=== PATIENT | female | born 1970 | race Caucasian/White ===

== ENCOUNTER 2018-08-26 18:46 | Outpatient (REF) | payer BC, SELFPAY ==
--- NOTE | 2018-08-26 15:00 | PAPFT_PTH ---
PATIENT: Randa Lucio LOC: [facility] U#:[id number] AGE/SX: 47/F ROOM: RE08/26/[address]: Braxton Aldridge DO : 1970 BED: DIS: 08/26/2018 SPEC #: [id number] RECD: 08/27/18 13:13 STATUS: ISRRAEL REBlair #: [id number] MIHAELA: 08/26/18 15:[address]: Braxton Aldridge DEPT: [facility] Cytology RECD BY: Delia Lepe Tissues: 1 - CX/ENDOCX FOR PAP SMEARS Procedures: PAP THIN PREP/UVM Screening HPV DNA PROBE Comments: [id number]
== END 2018-08-26 19:06 ==
LOC: LBN 18:46
PROVIDERS: PCP Emergency Medicine; Visit Provider Emergency Medicine
DX: Z12.4 Encounter for screening for malignant neoplasm of cervix (principal); Z11.51 Encounter for screening for human papillomavirus (HPV)
CPT/HCPCS: 88142; 87624

== ENCOUNTER 2018-08-31 02:05 | Outpatient (CLI) | payer BC, SELFPAY ==
[2018-08-31 11:58] LABS: Ferritin 36 ng/mL (8-388)
== END 2018-08-31 02:25 ==
PROVIDERS: PCP Emergency Medicine; Visit Provider Emergency Medicine
DX: E61.1 Iron deficiency (principal)
CPT/HCPCS: 36415; 82728

== ENCOUNTER 2019-12-13 02:39 | Outpatient (CLI) | payer BC, SELFPAY ==
[2019-12-13 08:00] LABS: HCT 38.4 % (36.0-46.0); HGB 12.8 g/dL (12.0-15.5); Mean Corp. HGB Concentration 33.3 g/dL (32.0-36.0); Mean Corpuscular Hemoglobin 32.7 pg (27.0-33.0); Mean Platelet Volume 9.5 fL (8.0-11.0); Platelet Count 293 x1000/uL (130-400); RBC 3.92 m/cumm (4.00-5.20); RBC Distribution Width 12.9 % (11.7-14.6); White Blood Cell Count 4.66 k/cumm (4.4-10.8)
[2019-12-13 09:13] LABS: Calculated LDL 95 mg/dL (<100); Cholesterol 196 mg/dL (<200); Ferritin 17 ng/mL (8-252); HDL Cholesterol 91 mg/dL (40-60); Triglyceride 51 mg/dL (<150)
[2019-12-13 10:51] LABS: Vitamin B12 436 pg/mL (193-986)
[2019-12-13 10:53] LABS: Folate > 20.0 ng/mL (8.6-20.0)
== END 2019-12-13 02:59 ==
PROVIDERS: PCP Emergency Medicine; Visit Provider Emergency Medicine
DX: D64.9 Anemia, unspecified (principal); Z13.220 Encounter for screening for lipoid disorders
CPT/HCPCS: 36415; 80061; 85027; 82607; 82728; 82746

== ENCOUNTER 2020-06-29 16:49 | Outpatient (REF) | payer BC, SELFPAY ==
--- NOTE | 2020-06-29 16:00 | ENDOMET_PTH ---
PATIENT: Randa Lucio LOC: [facility] U#:[id number] AGE/SX: 49/F ROOM: RE06/29/[address]: Pallavi Burris : 1970 BED: DIS: 06/29/2020 SPEC #: [id number] RECD: 06/29/20 17:04 STATUS: ISRRAEL REBlair #: [id number] MIHAELA: 06/29/20 16:[address]: Pallavi Burris DEPT: Surgical Specimen RECD BY: Dinorah Reno ENTERED: 06/29/20 17:05 SP TYPE: Endomet OTHR DR: Braxton Aldridge DO Tissues: 1 - ENDOMETRIUM BX/CURRETTE Procedures: GROSS AND MICRO LEVEL 4 Comments: [id number]
== END 2020-06-29 17:09 ==
LOC: LBN 16:49
PROVIDERS: PCP Emergency Medicine; Visit Provider Obstetrics & Gynecology Gynecology
DX: N92.0 Excessive and frequent menstruation with regular cycle (principal)
CPT/HCPCS: 88305

== ENCOUNTER 2021-10-07 10:08 | Day surgery (SDC) | payer BC, SELFPAY ==
--- NOTE | 2021-10-07 06:35 | COLE_ITS ---
Colonoscopy Report Date of procedure: 10/07/21 Pre-op diagnosis general: Colon Cancer Screening Post-op diagnosis procedure note: other (colorectal polyps) Procedure: Colonoscopy with polypectomy Surgeon: Sara May Anesthesia Type: General:No Airway Estimated blood loss (mL): 5 Pathology: other (ascending, transverse and rectal polyps) Complications: None Disposition: same day Indications: The patient is here for Colonoscopy pre-op. She has no family history of colon cancer. She has not had any bowel habit changes. -Discussed colonoscopy bowel prep as well as the procedure. Discussed possible complications of the procedure to include bleeding, pain, perforation, missed small lesion/polyp, sore throat, aspiration and adverse reaction to the medications. Questions were answered to patient?s satisfaction. No guarantees were implied or given.? Prep: Miralax/Dulcolax Procedure Start Time: 10:53 Procedure End Time: 11:22 Retraction Time: 17 minutes Findings: 5 small sessile polyps Procedure Description: After informed consent was obtained the patient was taken to the procedure room and placed in a left decubitous position. Monitors were applied and a time out was done. The patients name, date of , procedure, allergies to medications and metal in their body was reviewed. The patient was then sedated. Once sedated and comfortable a rectal exam was done. External exam was normal. Internal exam revealed a normal sphincter tone and no palpable masses. The scope was then introduced and retro-flexed. No internal hemorrhoids, polyps or masses were identified on retro-flexion. The scope was then advanced to the cecum with some difficulty. The ileocecal vlave and appendiceal orifice were identified. The prep was good. The scope was then slowly retracted over 17 minutes back into the rectum. Polyps were removed with a hot snare in the asce nding colon x1 and rectum x1 and with cold forceps in the ascending colon, transverse colon and rectum. There was no diverticulosis noted. The scope was removed and the patient was woken up and taken back to Same day surgery in stable condition. The patient tolerated the procedure well and there were no immediate complications. Follow up: The patient should follow up in 3-5 years unless they develop changes in bowel habits or other new gastrointestinal complaints.
--- NOTE | 2021-10-07 06:35 | W.PM.DSUDISC ---
Discharge Plan Disposition Patient Disposition: HOME Condition: Good Discharge Details Reason For Visit: Colonoscopy Attending Provider: Sara May Primary Care Provider: Aline Rider Home Meds and New Rx's Prescriptions: Continued ibuprofen 600 MG tablet 600 mg PO DIRECTED Qty: 90 0RF Rx Instructions: ONE IN A.M. ON DAY OF MENSES ferrous sulfate 325 MG tablet 325 mg PO DAILY 0RF multivitamin [Daily Multiple] 1 EACH tablet 1 ea PO DAILY 0RF sertraline 100 mg tablet 100 mg PO HS 0RF Discontinued polyethylene glycol 3350 17 gram/dose powder 238 g PO ONCE Qty: 238 0RF Rx Instructions: take per colonoscopy instructions bisacodyl [Dulcolax (bisacodyl)] 5 mg tablet,delayed release (DR/EC) 5 mg PO ONCE Qty: 4 0RF Rx Instructions: take per colonoscopy instructions Discharge Instructions Instructions: Colorectal Polyps (DC) Additional Instructions: Findings: 5 polyps Follow up: 3-5 years Please call if you develop: fevers >101.5 Nausea or Vomiting Abdominal pain that is not transient Rectal bleeding that is more then a tbsp A hard abdomen and inability to pass gas DAY SURGERY UNIT POST ENDOSCOPY INSTRUCTIONS Instructions for everyone who is given Anesthesia: For your safety, please do the following for the next 24 Hours: a. Do not drive or operate dangerous equipment b. Do not drink alcohol beverages or use any recreational drugs for the first 24 hours or while taking pain medications. The medications in your body may have a reaction that can be dangerous. c. Do not make any important decisions or sign any important papers 1. Generally there are no restrictions on your activity after a day or so has gone by, but you may feel a bit fatigued for a few days. 2. After you arrive home you may have a light meal and return to a normal diet as you can tolerate it without feeling sick to your stomach. 3. After surgery, you may feel pain or discomfort. This should be only transient, but if it persists please contact your doctor. 4. If there are any questions regarding the findings of your procedure, please feel free to contact your doctor. 6. If you are unable to contact your doctor with a problem, contact the hospital at [phone]. 7. Continue all your regular medications unless directed otherwise. I understand the above instructions and have no questions. Signature of Patient or Responsible Adult Escort Date/Time Name of Responsible Adult Escort Signature of Nurse Date/Time Activity:: Activity as Tolerated Diet:: As Tolerated Discharge Orders Discharge Orders: Discharge Order (Routine); Ordered 10/07/21 Ordered By: Sara May
[2021-10-07 10:27] VITALS: BP 119/86; PULSE 67; RESP 16; TEMP 36.5; O2SAT 100
--- NOTE | 2021-10-07 10:32 | W.ANESPRE ---
General Info Date of Service Date Performed: 10/07/21 Height: 5 ft 9 in Weight: 61.8 kg Body Mass Index (BMI): 20.1 Surgical Procedure: Operation Date: 10/07/21 10:35 Proposed Procedure Side Surgeon andra May MD Meds Allergies and Home Medications Allergies Allergy/AdvReac Type Severity Reaction Status Date / Time amoxicillin Allergy Intermediate HIVES Verified 10/07/21 10:30 latex Allergy Unknown SKIN RASH Verified 10/07/21 10:30 meperidine AdvReac Intermediate Nausea; Verified 10/07/21 10:30 VOMITING Home Medication Medication Instructions Recorded ibuprofen 600 mg tablet 600 mg PO DIRECTED #90 02/01/13 ferrous sulfate 325 mg (65 mg 325 mg PO DAILY 05/05/14 iron) tablet multivitamin (Daily Multiple) 1 ea PO DAILY 07/01/16 bisacodyl 5 mg tablet,delayed 5 mg PO ONCE #4 tab 09/27/21 release (Dulcolax (bisacodyl)) polyethylene glycol 3350 17 238 g PO ONCE #238 g 09/27/21 gram/dose oral powder sertraline 100 mg tablet 100 mg PO HS 10/03/21 Current Visit Medications: Current Medications Generic Name Dose Route Start Last Admin Trade Name Freq PRN Reason Stop Dose Admin Hyoscyamine Sulfate 0.125 mg 10/07/21 06:37 Hyoscyamine 0.125 Mg Sl/Oral/Chew SL DIRECTED PRN Ringer's Solution 1,000 mls @ 80 mls/hr 10/07/21 06:00 IV 11/03/21 23:59 INFUSION [facility] IV Miscellaneous Supplies 1 each 10/07/21 06:00 Iv Access IV 11/03/21 23:59 DIRECTED [facility] Ondansetron HCl 4 mg 10/07/21 06:37 Ondansetron 4 Mg/2 Ml Vial IVP Q4H PRN PRN Nausea / Vomiting Sodium Chloride 0 ml 10/07/21 06:00 Normal Saline Flush 10 Ml Syr IV 11/03/21 23:59 PRN PRN Sodium Chloride 0 ml 10/07/21 06:00 Normal Saline 10 Ml Vial IJ 11/03/21 23:59 DIRECTED PRN Sterile Water 0 ml 10/07/21 06:00 Water,Injection,Sterile 10 Ml Vial IJ 11/03/21 23:59 DIRECTED PRN PFSH Active Problems Active Problems: Problem Status Onset Code Uterine rupture during labor 10/31/15 O71.1 Umbilical hernia 05/05/14 K42.9 Premenopause menorrhagia N92.4 Metrorrhagia N92.1 Family hx-breast malignancy 08/06/12 Z80.3 Anxiety 08/06/12 F41.9 Left carpal tunnel syndrome G56.02 Status post angioplasty of vein Z98.890 IUD (intrauterine device) in place Z97.5 IUD surveillance Z30.431 Medical History Medical History Anemia Due to menstrual brought blood loss Surgical History Surgical History section X 2 [place] teeth extracted Tobacco Smoking/Tobacco Use Status: Never Passive smoking exposure: No Second hand exposure: No Alcohol Alcohol Intake: current Alcohol intake frequency: a few times a week Alcohol type: beer Substance Use Substance use: Never Substance use type: does not use Prental History History 2 Para 2 Hx # Term Pregnancies 2 Multiple births Hx # Pregnancies Ectopic pregnancies AB induced Hx Number of Living Children 2 AB spontaneous Vital Signs and Lab Results Vital Signs Most Recent Vital Signs in EMR: Most Recent Vital Signs Temp Pulse Resp BP Pulse Ox 36.5 C 67 16 119/86 100 10/07/21 10:27 10/07/21 10:27 10/07/21 10:27 10/07/21 10:27 10/07/21 10:27 Lab Results Blood Type / Crossmatch: No Data to Display Complete Blood Count: No Data to Display Complete Metabolic Panel: No Data to Display Liver Function Panel: No Data to Display Coagulation Panel: No Data to Display Cardiac Panel: No Data to Display Arterial Blood Gas: No Data to Display Venous Blood Gas: No Data to Display Pancreas Panel: No Data to Display Thyroid Panel: No Data to Display Infectious Disease: No Data to Display Blood Cultures: No Data to Display Toxicology Panel: No Data to Display Panel: No Data to Display Anesthesia Assessment and Plan Anesthesia History Personal History: No History of Anesthesia Complications Family History: No Family History of Anesthesia Complications Exercise Tolerance Exercise Tolerance: Metabolic Equivalents>4 Pertinent Negatives Pertinent Negatives: No Symptoms of GERD, No Major Cardiovascular Symptoms or Complaints and No Major Pulmonary Symptoms or Complaints Cardiac & Pulmonary Exam Cardiac Exam: Normal S1/S2 Heart Sounds Pulmonary Exam: Clear Bilateral Breath Sounds Implantable Cardiac Device Does patient have a Pacemaker or an ICD?: No Airway Exam Known Difficult Airway: No Mallampati Class: 1 Mouth Opening: Normal (> 3cm) Thyromental Distance: Greater than 3 cm Neck Range of Motion: Full ROM Neck Circumference: Normal Teeth Condition: Normal Dentition ASA Classification ASA Score: ASA 2 Emergency Case?: No NPO Status NPO Status: NPO Clears >2 hours, Solids >8 hours Status Status: Not Per Patient Anesthesia Plan Resuscitation Status: Full Code Anesthesia Technique: General Anesthesia Airway Planned: Natural Airway Monitors Used: Standard Monitors
[2021-10-07 10:44] VITALS: BMI 20.1
[2021-10-07] MEDS: Lactated Ringers 1,000 ML 80 ML IV (10:44)
--- NOTE | 2021-10-07 11:08 | BOWEL_PTH ---
PATIENT: Randa Lucio LOC: [facility] U#:[id number] AGE/SX: 50/F ROOM: RE10/07/[address]: Sara May MD : 1970 BED: DIS: 10/07/2021 SPEC #: [id number] RECD: 10/07/21 12:59 STATUS: ISRRAEL REQ #: [id number] MIHEALA: 10/07/21 11:[address]: Sara May DEPT: Surgical Specimen RECD BY: Dinorah Reno ENTERED: 10/07/21 13:00 SP TYPE: Bowel OTHR DR: Aline Rider Tissues: 1 - BIOPSY BOWEL 2 - BIOPSY BOWEL 3 - BIOPSY BOWEL Procedures: GROSS AND MICRO LEVEL 4 Comments: [id number]
[2021-10-07 11:34] VITALS: BP 105/76; PULSE 60; RESP 16; TEMP 36.1; O2SAT 99
[2021-10-07 12:05] VITALS: BP 104/70; PULSE 58; RESP 16; TEMP 36.2; O2SAT 100
--- NOTE | 2021-10-07 12:26 | W.ANESPOSTOP ---
Postoperative Evaluation Date, Time and Location Date Performed: 10/07/21 Time Performed: 11:56 Patient Location: Day Surgery Unit Vital Signs Most Recent Imported Vital Signs: Most Recent Vital Signs Temp Pulse Resp BP Pulse Ox 36.2 C L 58 L 16 104/70 100 10/07/21 12:05 10/07/21 12:05 10/07/21 12:05 10/07/21 12:05 10/07/21 12:05 Pain Score Most Recent Pain Score: Most Recent Pain Score Pain Level 0 10/07/21 12:05 Assessment Mental Status: Awake (Alert & Oriented to Patient Baseline) Airway and Respiratory Function: Patent airway with normal (patient baseline) respiratory exam Cardiovascular Function: Hemodynamically Stable Hydration Status: Adequately Hydrated Nausea & Vomiting: No Nausea or Vomiting Pain: Pt. Denies Any Pain Peripheral Nerve Block: Patient did not receive a nerve block
== END 2021-10-07 13:14 | disposition home or self-care (01) ==
LOC: SUR 10:08
PROVIDERS: PCP Family Medicine; Visit Provider Surgery
PROC: 0DJD8ZZ Inspection of Lower Intestinal Tract, Via Natural or Artificial Opening Endoscopic (ICD-10-PCS; CPT 45378; principal; 2021-10-07 10:30)
DX: Z12.11 Encounter for screening for malignant neoplasm of colon (principal); K62.1 Rectal polyp; D12.2 Benign neoplasm of ascending colon; D12.3 Benign neoplasm of transverse colon
CPT/HCPCS: 45385; 45380; 88305; J2001

== ENCOUNTER → 2022-03-26 01:52 | Outpatient (CLI) | payer BC, SELFPAY ==
--- NOTE | 2022-03-26 07:30 | DI.MAMMO_ITS ---
Exam(s) MAMMO SCREENING EXAM: MAMMO SCREENING CLINICAL HISTORY: screening,Z12.39 TECHNIQUE: Mammograms were interpreted according to the usual protocol including computer analysis w [employer] CAD system, tomosynthesis and C-view imaging. COMPARISON: FINDINGS: The breasts are heterogeneously dense. No dominant mass or clumped microcalcification is identified in either breast. The current examination is compared with previous examination of May 2014 and allowing for differences in technique there has been no gross interval change in appearance in neva rison with the prior study. IMPRESSION: No specific evidence of malignancy at this time. Routine screening examinations are suggested at yea rly intervals due to the family history of breast carcinoma. BI-RADS Category 1 - Negative Breast Density - Category C - Heterogeneously dense
--- NOTE | 2022-03-26 14:06 | DI.US_ITS ---
APPROVED REPORT EXAM: Comprehensive 2D, Doppler, and color-flow Echocardiogram Patient Location: Out-Patient [facility] Supervisor: Romelia Art RDCS (AE) Indications: Screening due to family history of Thoracic aortic aneurysm, Murmur Other Information Study Quality: Good Conclusion Normal left ventricular wall thickness and chamber size. Estimated ejection fraction is 60 to 65%. Wall motion is normal Normal right ventricular size and systolic function Both atria are normal in size There is no structural or hemodynamically significant valvular disease Estimated right ventricular systolic pressure is 18 mmHg The ascending aorta and aortic root are normal in size Wall motion Left Ventricle The left ventricle is normal size. The left ventricular systolic function is normal. The left ventric ular ejection fraction is within the normal range. There is normal left ventricular wall thickness. T here is normal LV segmental wall motion. There is no ventricular septal defect visualized. LVEF is 60 -65%. Right Ventricle The right ventricle is normal size. The right ventricular systolic function is normal. The RVSP is 18 .3mmHg. Atria The left atrium size is normal. The right atrium size is normal. The interatrial septum is intact wit h no evidence for an atrial septal defect. Aortic Valve The aortic valve is normal in structure. Aortic valve is trileaflet. There is no aortic valvular sten osis. No aortic regurgitation is present. Mitral Valve The mitral valve is normal in structure. No evidence of mitral valve stenosis. Trace mitral regurgita tion. Tricuspid Valve The tricuspid valve is normal in structure. There is no tricuspid valve stenosis. Trace tricuspid reg urgitation. Pulmonic Valve The pulmonary valve is normal in structure. There is no pulmonic valvular stenosis. There is no pulmo carlos valvular regurgitation. Great Vessels The aortic root is normal in size. The ascending aorta is normal in size. Aortic arch is normal in ca liber. IVC is normal in size and collapses >50% with inspiration. Pericardium There is no pericardial effusion. 2D Dimensions IVSD d PLAX 0.84 cm F: 0.6-1.0 LV Vol A2C d MOD 117.5 mL LVPW d PLAX 0.84 cm F: 0.6 - 1.0 LV Vol A4C d MOD 123.2 mL LVID d PLAX 4.75 cm F: 3.8 - 5.2 LA vol/ BSA A2C s A-L 18.4 mL/m2 LVDs 3.00 cm F: 2.2 - 3.5 LA vol/ BSA A4C s A-L 26.0 mL/m2 Ao Root d 2.71 cm F: 2.7 - 3.3 LA Vol/ BSA Biplane s A-L 25.8 mL/m2 RA Area A4C 11.15 cm2 LA Area A4C s MOD 16.70 cm2 RA Vol/ BSA A4C s A-L 14.2 mL/m2 LA Area A2C s MOD 11.91 cm2 Ao Asc Diam d 2.94 cm F: 2.3 - 3.1 LV EF A4C MOD 65.1 % LV EF Teichholz 65.5 % LV EF A2C MOD 61.1 % LVEF (Yao's) 62.45 % F: 54 - 74 LV EF Biplane MOD 62.5 % LV Volume 94.52 mL F: 46 - 106 SV 75.52 mL LV Volume Index 53.40 mL/m2 F: 29 - 61 SV Index 42.54 mL/m2 LV Vol Biplane MOD 120.9 mL FS 35.95 % M-Mode TAPSE 2.61 cm (M/F) >1.7 LV Diastology MV E' medial 0.098 (>0.07 m/s) E/A Ratio 1.4 LV E/e MED 6.30 (<14) MV E Vmax 0.62 (0.4-1.3 m/s) MV E' lateral 0.158 (>0.1 m/s) MV A Vmax 0.45 (0.4-1.3 m/s) LV E/e LAT 3.90 (<14) MV E/A Ratio 1.33 MV E/E' medial 6.32 MV E/E' lateral 3.92 Aortic Valve LVOT Area 2.85 cm2 AoV Area Vmax 2.57 cm2 LVOT Vmax 1.25 m/s AoV Area/ BSA (Vmax) 1.45 cm2/m2 LVOT Mean Genaro. 0.84 m/s JUAN DIEGO Mean Genaro. 2.59 cm2 LVOT Peak Grad 6.3 mmHg JUAN DIEGO Mean Genaro. Index 1.46 cm2/m2 LVOT Mean Grad 3.3 mmHg LVOT VTI 0.246 m LVOT Diam s 1.90 cm AoV Vmax 1.39 m/s Velocity Ratio 0.89 AoV Mean Genaro. 0.93 m/s AoV Peak Grad 7.7 mmHg LVOT SV 70.11 mL AoV Mean Grad 3.9 mmHg AoV VTI 0.264 m AoV Area VTI 2.66 cm2 AoV Area/ BSA (VTI) 1.50 cm/m2 Mitral Valve MV DT 195 (160-240 msec) MV PHT 56 msec MV Area PHT 3.90 cm2 MV VTI 0.218 m MV Area VTI 3.22 (4.0-6.0 cm2) Pulmonary Valve PV Vmax 0.93 (0.5-1.5 m/s) RVOT Peak Gr. 2.76 mmHg PV Peak Grad 3.5 mmHg RVOT Mean Gr. 1.45 mmHg PV Mean Grad 2.1 mmHg RVOT VTI 0.191 m PV VTI 0.213 m RVOT Vmax 0.83 m/s Tricuspid Valve TR Peak Grad 15.2 mmHg TR Vmax 1.96 m/s RA Pressure 3.00 mmHg RVSP (TR) 18.3 mmHg
== END ==
PROVIDERS: PCP Family Medicine; Visit Provider Family Medicine
DX: Z12.31 Encounter for screening mammogram for malignant neoplasm of breast (principal); R01.1 Cardiac murmur, unspecified; Z82.49 Family history of ischemic heart disease and other diseases of the circulatory system; R92.8 Other abnormal and inconclusive findings on diagnostic imaging of breast
CPT/HCPCS: 77063; 77067; 93306

== ENCOUNTER → 2023-03-30 03:57 | Outpatient (CLI) | payer BC, SELFPAY ==
--- NOTE | 2023-03-30 09:15 | DI.MAMMO_ITS ---
Exam(s) MAMMO SCREENING EXAM: MAMMO SCREENING CLINICAL HISTORY: screening,Z12.39. TECHNIQUE: Bilateral full field digital CC and MLO mammographic images were obtained with 3D tomosyn thesis and utilizing computer aided detection (CAD). COMPARISON: Prior mammograms were reviewed. FINDINGS: Fibroglandular tissue pattern is again noted be dense, this somewhat decreasing the sensitivity of th e mammogram for finding hidden underlying lesions. There are no CAD designations. There are no new spiculated masses nor malignant appearing microcalcification groups. There is no significant architectural distortion nor skin thickening-retraction. IMPRESSION: No radiographic evidence of malignancy. BI-RADS Category 1 - Negative Breast Density - Category C - Heterogeneously dense Breast density Category C or D implies that the patient has dense breast tissue. Dense breast tissue can make it harder to find cancer on a mammogram. Dense breast tissue is also associated with an incr eased risk of breast cancer. This information about the result of the mammogram report was provided to the patient to raise their awareness. Use this report when you speak with the patient about their risks for breast cancer, which includes their family history. At that time, you may recommend additional screening tests (Ultrasoun d or MRI) as these tests may add significant information. A negative radiographic report should not delay biopsy if a dominant or clinically suspicious mass is present. Up to ten percent of cancers are not identified on mammography. A negative report may reinforce clinical impression. Adenosis and dense breasts may obscure an underlying neoplasm. False positive reports average 6 to 10%. Patient will receive a letter notifying them of these results.
== END ==
PROVIDERS: PCP Family Medicine; Visit Provider Family Medicine
DX: Z12.31 Encounter for screening mammogram for malignant neoplasm of breast (principal)
CPT/HCPCS: 77063; 77067

== ENCOUNTER 2024-02-26 09:16 | Outpatient (REF) | payer BC, SELFPAY ==
--- NOTE | 2024-02-26 08:30 | PAPFT_PTH ---
PATIENT: Randa Lucio LOC: [facility] U#:[id number] AGE/SX: 53/F ROOM: RE02/26/[address]: Aline Rider : 1970 BED: DIS: 02/26/2024 SPEC #: [id number] RECD: 02/26/24 12:38 STATUS: ISRRAEL REBlair #: [id number] MIHAELA: 02/26/24 08:[address]: Aline Rider DEPT: ON LICENSE OF [facility] Cytology RECD BY: Dinorah Reno Tissues: 1 - CX/ENDOCX FOR PAP SMEARS Procedures: PAP THIN PREP/UVM Screening HPV DNA PROBE Comments: [id number]
== END 2024-02-26 09:17 | disposition home or self-care (01) ==
LOC: LBN 09:16
PROVIDERS: PCP Family Medicine; Visit Provider Family Medicine
DX: Z11.4 Encounter for screening for human immunodeficiency virus [HIV] (principal); Z11.59 Encounter for screening for other viral diseases; Z13.6 Encounter for screening for cardiovascular disorders; D12.6 Benign neoplasm of colon, unspecified; Z00.00 Encounter for general adult medical examination without abnormal findings
CPT/HCPCS: 88142; 87624

== ENCOUNTER 2024-03-22 03:13 | Outpatient (CLI) | payer BC, SELFPAY ==
[2024-03-22 12:39] LABS: Calculated LDL 88 mg/dL (<100); Cholesterol 182 mg/dL (<200); HDL Cholesterol 81 mg/dL (40-60); Triglyceride 68 mg/dL (<150)
[2024-03-23 09:57] LABS: Hepatitis C Ab w Rflx HCV PCR Negative (Negative)
[2024-03-23 11:15] LABS: HIV-1/2 Ag & Ab Screen Negative (Negative)
== END 2024-03-22 03:14 | disposition home or self-care (01) ==
LOC: LOS 03:13
PROVIDERS: PCP Family Medicine; Visit Provider Family Medicine
DX: Z11.59 Encounter for screening for other viral diseases (principal); Z11.4 Encounter for screening for human immunodeficiency virus [HIV]; Z13.6 Encounter for screening for cardiovascular disorders
CPT/HCPCS: 36415; 80061; 86803; 87389

== ENCOUNTER 2024-09-16 08:57 | Day surgery (SDC) | payer BC, SELFPAY ==
--- NOTE | 2024-09-15 16:28 | W.PM.DSUDISC ---
Date of service: 09/16/24 Discharge Plan Disposition Patient Disposition: Home Condition: Good Discharge Details Reason For Visit: Screening colonoscopy Attending Provider: Jeronimo Stahl Primary Care Provider: Aline Rider Home Meds and New Rx's Prescriptions: Continued Kyleena 17.5 mcg/24 hrs (5 yrs) 19.5 mg intrauterine device 1 device intrauterine ONCE Rx Instructions: as a single dose multivitamin [Daily Multiple] 1 EACH tablet 1 ea PO DAILY sertraline 100 mg tablet 100 mg PO HS Qty: 90 3RF Discontinued bisacodyl [Dulcolax (bisacodyl)] 5 mg tablet,delayed release (DR/EC) 5 mg PO ONCE Qty: 4 0RF Rx Instructions: Take per colonoscopy instructions provided by ordering providers office polyethylene glycol 3350 17 gram/dose powder 17 g PO ONCE Qty: 238 0RF Rx Instructions: Take per colonoscopy instructions provided by ordering providers office Discharge Instructions Instructions: Colon polyps Additional Instructions: Randa, it was very nice to meet you today, and I hope you make a quick recovery after the procedure. Things went very smoothly. I did find, and removed, 2 polyps today. Both of these were small. Similar to your previous experience, both of these will be sent off for testing, but send of the nature of the polyps, my office will be in touch with recommendations for future colonoscopies. If you need anything, or have any questions, please do not hesitate to call. 1. If tolerated, consume a soft, low fiber diet for 1-2 days. [address] not drive, drink alcohol, operate machinery, make critical decisions, or do activities that require coordination or balance for 24 hours. 3. Because air was put into your colon during the procedure, expelling air from your rectum (passing gas or farting) is normal. 4. You may not have a bowel movement for 1-3 days because of the colonoscopy prep. This is normal. 5. Go directly to the emergency room if you notice any of the following: Develop chills (warm to touch), or if you have a thermometer and your temperature is above 101 Difficulty breathing or difficultly swallowing Persistent vomiting Severe abdominal pain, other than gas cramps Severe chest pain Black, tarry stools Any bleeding ? exceeding one tablespoon 6. Call your physician if the site where your intravenous was started becomes red, swollen, painful, and warm to touch. 7. Your physician has reviewed your pre-procedure medications. Please continue to take those medications as previously ordered. You will be given specific information/education regarding any changes to your medications before leaving. Activity:: Activity as Tolerated Diet:: As Tolerated Discharge Orders Discharge Orders: Discharge Order (Routine); Ordered 09/15/24 Ordered By: Jeronimo Stahl DS: Diagnosis Discharge Diagnosis (1) Encounter for screening colonoscopy: Status: Acute Asessment and Plan: Follow-up on polypectomy results
--- NOTE | 2024-09-15 16:29 | COLE_ITS ---
Date of service: 09/16/24 Time of Service: 11:30 Colonoscopy Report Date of procedure: 09/16/24 Pre-op diagnosis general: Screening colonoscopy Post-op diagnosis procedure note: other (Colon polyps) Procedure: Colonoscopy with polypectomy Surgeon: Jeronimo Stahl Anesthesia Type: General:No Airway Estimated blood loss (mL): 5 Pathology: other (0.25 cm flat ascending colon polyp, 0.25 cm flat polyp at 35 cm) Complications: None Disposition: same day Indications: Randa is a 53-year-old woman who needs her neck screening colonoscopy. She has a history of adenomatous polyps. Prep: Miralax/Dulcolax Procedure Start Time: 10:44 Procedure End Time: 11:16 Retraction Time: 13 Findings: 0.25 cm flat ascending colon polyp, 0.25 cm flat polyp at 35 cm Procedure Description: After the induction of anesthesia, and with the patient in left lateral decubitus position, I began by performing an external anorectal exam.? Perineum and skin were normal, as was the anal verge.? There was no evidence of external hemorrhoids.? Next, I performed a digital rectal exam.? I did not appreciate any abnormal findings.? Next, I advanced a colonoscope into the rectal vault.? I performed retroflexion.? This appeared normal.? Using insufflation, I then advanced the colonoscope beyond the rectal folds and into the sigmoid colon before advancing towards the cecum.? The quality of the prep was excellent.? The scope was noted to be in the cecum by identification of the ileocecal valve and appendiceal orifice.? I then began withdrawing the colonoscope using repeated irrigation as necessary for full evaluation of the colonic mucosa. Within the ascending colon was a 0.25 cm flat polyp. This was removed with cold forceps. ?Another 0.25 cm flat polyp was found around 35 cm from the anus. This had features more consistent with a hyperplastic polyp, but to be safe, given the history, I did remove this with cold forceps as well. Once the scope was withdrawn to the level of the rectum, great care was taken to examine portions of the rectal folds.? Finally, the scope was withdrawn and the patient was brought to the same-day surgery recovery unit as the anesthetic wore off. ?The findings and instructions were shared with the patient prior to discharge. Beatty Bowel Prep Beatty Bowel Prep Right Colon: 3 Left Colon: 3 Transverse Colon: 3 Total Score: 9
[2024-09-16 09:32] VITALS: BP 119/79; PULSE 59; RESP 16; TEMP 36.6; O2SAT 99
[2024-09-16] MEDS: Lactated Ringers 1,000 ML 80 ML IV (09:41)
--- NOTE | 2024-09-16 09:58 | W.ANESPRE ---
General Info Date of Service Date Performed: 09/16/24 Height: 5 ft 9 in Weight: 63.957 kg Body Mass Index (BMI): 20.8 Surgical Procedure: Operation Date: 09/16/24 10:35 Proposed Procedure Side Surgeon p Colonoscopy Jeronimo Stahl MD Meds Allergies and Home Medications Allergies Allergy/AdvReac Type Severity Reaction Status Date / Time amoxicillin Allergy Intermediate HIVES Verified 09/16/24 09:30 meperidine AdvReac Intermediate Nausea; Verified 09/16/24 09:30 VOMITING Home Medication ?Medication ?Instructions ?Recorded multivitamin (Daily Multiple 1 ea PO DAILY 07/01/16 tablet) levonorgestrel 17.5 mcg/24 hr (up 1 device intrauterine ONCE 03/07/22 to 5 yrs) 19.5mg intrauterine device (Kyleena) sertraline 100 mg tablet 100 mg PO HS #90 tabs 01/25/24 Current Visit Medications: Current Medications Generic Name Dose Route Start Last Admin Trade Name Freq PRN Reason Stop Dose Admin Ringer's Solution 1,000 mls @ 80 mls/hr 09/16/24 06:00 09/16/24 09:41 IV 09/16/24 23:59 80 mls/hr INFUSION RASHAWN Administration IV Miscellaneous Supplies 1 each 09/16/24 06:00 Iv Access IV 09/16/24 23:59 DIRECTED RASHAWN Ondansetron HCl 4 mg 09/15/24 16:30 Ondansetron 4 Mg/2 Ml Vial IVP 10/15/24 16:29 Q4H PRN PRN Nausea / Vomiting Sodium Chloride 0 ml 09/16/24 06:00 Normal Saline Flush 10 Ml Syr IV 09/16/24 23:59 PRN PRN Sodium Chloride 0 ml 09/16/24 06:00 Normal Saline 10 Ml Vial IJ 09/16/24 23:59 DIRECTED PRN Sterile Water 0 ml 09/16/24 06:00 Water,Injection,Sterile 10 Ml Vial IJ 09/16/24 23:59 DIRECTED PRN PFSH Active Problems Active Problems: Problem Status Onset Code Encounter for screening colonoscopy Acute Z12.11 Serrated adenoma of colon Acute D12.6 IUD (intrauterine device) in place Acute Z97.5 Left carpal tunnel syndrome Chronic G56.02 Anxiety Chronic 08/06/12 F41.9 Umbilical hernia Chronic 05/05/14 K42.9 Medical History Medical History Right carpal tunnel syndrome FH: thoracic aortic aneurysm normal echo 2021 Anemia Due to menstrual brought blood loss Family hx-breast malignancy (08/06/12) mother and MGM. both post menop. Premenopause menorrhagia low ferritin. Rx with Low dose OCPs till 08/2020. Kyleena IUD. Uterine rupture during labor (10/31/15) Surgical History Surgical History History of section History of colonoscopy (~09/2021) [place] teeth extracted Status post angioplasty of vein 12/2018. R leg. Tobacco Smoking/Tobacco Use Status: Never Passive smoking exposure: No Second hand exposure: No Alcohol Alcohol Intake: current Alcohol intake frequency: a few times a week Alcohol type: beer Substance Use Substance use: Never Substance use type: does not use Prental History History 2 Para 2 Hx # Term Pregnancies 2 Multiple births Hx # Pregnancies Ectopic pregnancies AB induced Hx Number of Living Children 2 AB spontaneous Vital Signs and Lab Results Vital Signs Most Recent Vital Signs in EMR: Most Recent Vital Signs Temp Pulse Resp BP Pulse Ox 36.6 C 59 L 16 119/79 99 09/16/24 09:32 09/16/24 09:32 09/16/24 09:32 09/16/24 09:32 09/16/24 09:32 Point of Care Results Point of Care Results: POC- Test(urine) Negative 09/16/24 10:12 Lab Results Blood Type / Crossmatch: No Data to Display Complete Blood Count: No Data to Display Complete Metabolic Panel: No Data to Display Liver Function Panel: No Data to Display Coagulation Panel: No Data to Display Cardiac Panel: No Data to Display Arterial Blood Gas: No Data to Display Venous Blood Gas: No Data to Display Pancreas Panel: No Data to Display Thyroid Panel: No Data to Display Infectious Disease: No Data to Display Blood Cultures: No Data to Display Toxicology Panel: No Data to Display Panel: No Data to Display Imaging and Studies Imaging and Studies Study information below may be from another EMR and interpreted by another provider. Please see original notes in EMR for more complete details. Echocardiogram Summary: Patient Name: Randa Lucio Unit #: [id number] Loc: DI Ordering Provider: Aline Rider M.D. Status: REG CLI Primary Care Provider: Aline Rider M.D. Date of Exam: 03/26/22 Sex: F Admission Date: 03/26/22 : 1970 Age: 51 APPROVED REPORT EXAM: Comprehensive 2D, Doppler, and color-flow Echocardiogram Patient Location: Out-Patient [place] Maker: Romelia Art RDCS (AE) Indications: Screening due to family history of Thoracic aortic aneurysm, Murmur Other Information Study Quality: Good Conclusion Normal left ventricular wall thickness and chamber size. Estimated ejection fraction is 60 to 65%. Wall motion is normal Normal right ventricular size and systolic function Both atria are normal in size There is no structural or hemodynamically significant valvular disease Estimated right ventricular systolic pressure is 18 mmHg The ascending aorta and aortic root are normal in size Anesthesia Assessment and Plan Anesthesia History Personal History: No History of Anesthesia Complications Family History: No Family History of Anesthesia Complications Exercise Tolerance Exercise Tolerance: Metabolic Equivalents>4 Pertinent Negatives Pertinent Negatives: No Symptoms of GERD, No Major Cardiovascular Symptoms or Complaints, No Major Pulmonary Symptoms or Complaints and No History of CVA/TIA Cardiac & Pulmonary Exam Cardiac Exam: Normal S1/S2 Heart Sounds Pulmonary Exam: Clear Bilateral Breath Sounds Implantable Cardiac Device Does patient have a Pacemaker or an ICD?: No Airway Exam Known Difficult Airway: No Mallampati Class: 1 Mouth Opening: Normal (> 3cm) Thyromental Distance: Greater than 3 cm Neck Range of Motion: Full ROM Neck Circumference: Normal Teeth Condition: Normal Dentition ASA Classification ASA Score: ASA 2 Emergency Case?: No NPO Status NPO Status: NPO Clears >2 hours, Solids >8 hours Status Status: Negative HCG Anesthesia Plan Resuscitation Status: Full Code Anesthesia Technique: General Anesthesia Airway Planned: Natural Airway Monitors Used: Standard Monitors
[2024-09-16 10:13] VITALS: BMI 20.8
--- NOTE | 2024-09-16 11:07 | BOWEL_PTH ---
PATIENT: Randa Lucio LOC: [facility] U#:[id number] AGE/SX: 53/F ROOM: RE09/16/[address]: Jeronimo Stahl MD : 1970 BED: DIS: 09/16/2024 SPEC #: [id number] RECD: 09/16/24 13:13 STATUS: ISRRAEL RE #: [id number] MIHAELA: 09/16/24 11:[address]: Jeronimo Stahl DEPT: Surgical Specimen RECD BY: Dinorah Reno ENTERED: 09/16/24 13:15 SP TYPE: Bowel OTHR DR: Aline Rider Tissues: 1 - BIOPSY BOWEL 2 - BIOPSY BOWEL Procedures: GROSS AND MICRO LEVEL 4 Comments: [id number]
[2024-09-16 11:22] VITALS: BP 107/69; PULSE 65; RESP 16; TEMP 36.2; O2SAT 98
[2024-09-16 11:50] VITALS: BP 115/80; PULSE 64; RESP 16; TEMP 36; O2SAT 100
--- NOTE | 2024-09-16 12:11 | W.ANESPOSTOP ---
Postoperative Evaluation Date, Time and Location Date Performed: 09/16/24 Time Performed: 11:56 Patient Location: Day Surgery Unit Vital Signs Most Recent Imported Vital Signs: Most Recent Vital Signs Temp Pulse Resp BP Pulse Ox 36 C L 64 16 115/80 100 09/16/24 11:50 09/16/24 11:50 09/16/24 11:50 09/16/24 11:50 09/16/24 11:50 Pain Score Most Recent Pain Score: Most Recent Pain Score Pain Level 0 09/16/24 11:50 Assessment Mental Status: Awake (Alert & Oriented to Patient Baseline) Airway and Respiratory Function: Patent airway with normal (patient baseline) respiratory exam Cardiovascular Function: Hemodynamically Stable Hydration Status: Adequately Hydrated Nausea & Vomiting: No Nausea or Vomiting Pain: Pt. Denies Any Pain Peripheral Nerve Block: Patient did not receive a nerve block
== END 2024-09-16 12:06 | disposition home or self-care (01) ==
LOC: SUR 08:57
PROVIDERS: PCP Family Medicine; Visit Provider Surgery
PROC: 0DJD8ZZ Inspection of Lower Intestinal Tract, Via Natural or Artificial Opening Endoscopic (ICD-10-PCS; CPT 45378; principal; 2024-09-16 10:30)
DX: Z12.11 Encounter for screening for malignant neoplasm of colon (principal); D12.5 Benign neoplasm of sigmoid colon; D12.2 Benign neoplasm of ascending colon
CPT/HCPCS: 45380; 81025; 88305; J2003; J2405; J2704

== ENCOUNTER 2025-03-28 02:21 | Outpatient (CLI) | payer BC, SELFPAY ==
--- NOTE | 2025-03-28 07:00 | DI.MAMMO_ITS ---
Exam(s) MAMMO SCREENING EXAM: MAMMO SCREENING CLINICAL HISTORY: screening, Z12.39 TECHNIQUE: Bilateral full field digital CC and MLO mammographic images were obtained with 3D tomosynthesis and utilizing computer aided detection (CAD). COMPARISON: Comparison is made with prior examinations. FINDINGS: Masses/Architectural Distortion: There is an area of increased asymmetric density in the posterior inferior right breast on the MLO view 7.5 cm from the nipple. This may represent overlying fibroglandular tissue, but spot compression views requested for further evaluation. Microcalcifications: No suspicious pleomorphic-type are seen. Skin Thickening/Nipple Retraction: None. IMPRESSION: 1. New asymmetric density in the posterior inferior right breast on the MLO view. 2. This area should be further evaluated with a spot compression view. Ultrasound may be indicated at that time. BI-RADS Category 0 - Incomplete: Need additional imaging evaluation Breast Density - Category C - The breast are heterogeneously dense, which may obscure small masses. Breast density Category C or D implies that the patient has dense breast tissue. Dense breast tissue can make it harder to find cancer on a mammogram. Dense breast tissue is also associated with an increased risk of breast cancer. This information about the result of the mammogram report was provided to the patient to raise their awareness. Use this report when you speak with the patient about their risks for breast cancer, which includes their family history. At that time, you may recommend additional screening tests (Ultrasound or MRI) as these tests may add significant information. A negative radiographic report should not delay biopsy if a dominant or clinically suspicious mass is present. Up to ten percent of cancers are not identified on mammography. A negative report may reinforce clinical impression. Adenosis and dense breasts may obscure an underlying neoplasm. False positive reports average 6 to 10%. Patient will receive a letter notifying them of these results.
== END 2025-03-28 02:41 ==
LOC: DI 02:21
PROVIDERS: PCP Family Medicine; Visit Provider Family Medicine
DX: Z12.31 Encounter for screening mammogram for malignant neoplasm of breast (principal); R92.323 Mammographic fibroglandular density, bilateral breasts
CPT/HCPCS: 77063; 77067

== ENCOUNTER 2025-04-05 01:23 | Outpatient (CLI) | payer BC, SELFPAY ==
--- NOTE | 2025-04-05 10:40 | DI.MAMMO_ITS ---
Exam(s) MG MAMMO SCREEN CALL BACK UNI US BREAST RT LIMITED EXAM: MG MAMMO SCREEN CALL BACK UNI and U/S breast RT limited CLINICAL HISTORY: F/U ABNL MAMMO, NEW ASYMMETRIC DENSITY POST/INF RT BREAST. TECHNIQUE: Craniocaudal and mediolateral oblique Full Field Digital Mammography views of the right breast with Computer Aided Diagnosis followed by Tomosynthesis and limited right breast ultrasound. COMPARISON: US US BREAST RT LIMITED from 04/05/2025 FINDINGS: Mammography/Tomosynthesis: Masses/Architectural Distortion: The area of concern does not persist on the additional views. There are no areas of architectural distortion. Microcalcifictions: No suspicious pleomorphic-type are seen. Skin Thickening/Nipple Retraction: None. Limited right breast US: Echotexture: Normal appearance of the glandular tissue. Shadowing: No suspicious foci. Cyst: None. Solid lesions: None seen. Ductal dilation: None. IMPRESSION: 1. No evidence of malignancy is noted. 2. Unless there is more urgent need, follow-up screening mammography is recommended, as per [place] [employer] guidelines. 3. The findings were discussed with the patient on the date of the examination. BI-RADS Category 1 - Negative Breast Density - Category C - The breast are heterogeneously dense, which may obscure small masses. Breast density Category C or D implies that the patient has dense breast tissue. Dense breast tissue can make it harder to find cancer on a mammogram. Dense breast tissue is also associated with an increased risk of breast cancer. This information about the result of the mammogram report was provided to the patient to raise their awareness. Use this report when you speak with the patient about their risks for breast cancer, which includes their family history. At that time, you may recommend additional screening tests (Ultrasound or MRI) as these tests may add significant information. A negative radiographic report should not delay biopsy if a dominant or clinically suspicious mass is present. Up to ten percent of cancers are not identified on mammography. A negative report may reinforce clinical impression. Adenosis and dense breasts may obscure an underlying neoplasm. False positive reports average 6 to 10%. Patient will receive a letter notifying them of these results.
== END 2025-04-05 01:43 ==
LOC: DI 01:23
PROVIDERS: PCP Family Medicine; Visit Provider Family Medicine
DX: Z12.31 Encounter for screening mammogram for malignant neoplasm of breast (principal)
CPT/HCPCS: 76642; 77063; 77067